=== PATIENT | female | born 1995 | race Hispanic/Latino ===

== ENCOUNTER 2019-09-18 10:24 | Observation (INO) | payer BC ==
[2020-01-04] MEDS ORDERED: PREN-18 PO (03:46)
[2020-01-04] MEDS ORDERED: LEVO100T4 PO (03:46)
== END 2019-09-18 12:45 | disposition home or self-care (01) ==
LOC: LDH 10:24
PROVIDERS: ADMIT Specialist; ATTEND Specialist
DX: O26.892 Other specified pregnancy related conditions, second trimester (principal); Z3A.24 24 weeks gestation of pregnancy
CPT/HCPCS: 76805; G0378 ×2

== ENCOUNTER 2019-12-24 12:44 | Observation (INO) | payer BC ==
[~2019-12-24] VITALS: Ht 170.2 cm; Wt 117.9 kg
[2019-12-24 15:00] VITALS: BP 129/92
== END 2019-12-24 15:10 | disposition home or self-care (01) ==
LOC: EDH 12:44 → LDH 13:03
PROVIDERS: ADMIT Specialist; ATTEND Specialist
DX: O42.92 Full-term premature rupture of membranes, unspecified as to length of time between rupture and onset of labor (principal); E03.9 Hypothyroidism, unspecified; Z98.890 Other specified postprocedural states; Z3A.38 38 weeks gestation of pregnancy
CPT/HCPCS: 36415; 59025; 76819; 80053; 81001; 84550; 85025; 85384; 85610; 85730; 87088; 99284; G0378 ×2

== ENCOUNTER 2020-01-02 | Inpatient (IN) | payer BC | END 2020-01-05 16:05 | disposition home or self-care (01) | DRG 787 | PROC: 10D00Z1 Extraction of Products of Conception, Low, Open Approach (ICD-10-PCS; principal; 2020-01-03) | PROC: 3E0234Z Introduction of Serum, Toxoid and Vaccine into Muscle, Percutaneous Approach (ICD-10-PCS; 2020-01-04) ==